=== PATIENT | female | born 1995 | race African-American/Black ===

== ENCOUNTER 2017-03-01 19:23 | Emergency (ER) | payer MEDICAID, OTHER ==
[2017-03-01] MEDS ORDERED: ACETAMINOPHEN 500 MG TAB PO ONE ×2 (19:36→19:45)
[2017-03-01 20:12] LABS: Basophils # (auto) 0 uL; Basophils % (auto) 0.2 % (0.0-2.0); Eosinophils # (auto) 0 uL; Hematocrit 38.2 % (36.0-46.0); Hemoglobin 13.2 g/dL (12.2-16.2); Lymphocytes # (auto) 0.6 uL; Mean Corpuscular Hgb Conc. 34.5 g/dL (32.0-36.0); Mean Corpuscular Volume 89.7 fL (80.0-100.0); Mean Platelet Volume 7.3 fL (6.9-10.8); Monocytes # (auto) 0.7 uL; Monocytes % (auto) 6.8 % (0.0-12.0); Neutrophils # (auto) 8.7 uL; Platelet Count (auto) 325 10^3/uL (140-450); Red Cell Distribution Width 13.2 % (11.8-14.3)
[2017-03-01 20:18] LABS: Albumin 3.4 g/dL (3.4-5.0); BUN/Creatinine Ratio 3.4; Calcium 8.3 mg/dL (8.5-10.1)
[2017-03-01 20:21] LABS: Bilirubin, Total 0.6 mg/dL (0.2-1.0); Total Protein 8.3 g/dL (6.4-8.2)
[2017-03-01] MEDS ORDERED: cefTRIAXone SOD 1,000 MG VL IM ONE (23:15)
[2017-03-01] MEDS ORDERED: HYDROcodone-ACET 5/325MG TAB PO ONE (23:15)
[2017-03-01 23:54] LABS: Urine Bilirubin Negative (Negative); Urine Blood Negative /uL (Negative); Urine Color Yellow (Yellow); Urine Glucose Normal (Normal); Urine Ketone 2+ (Negative); Urine Mucus FEW (None Seen); Urine Nitrite Negative (Negative); Urine RBC 2 /hpf (0 - 4); Urine Squamous Epithelial Cell FEW /hpf (<5); Urine pH 6.5 (5.0-8.0)
[2017-03-02 00:55] VITALS: BP 111/62
== END 2017-03-02 00:57 | disposition home or self-care (01) ==
LOC: ER 19:27
DX: J03.90 Acute tonsillitis, unspecified (principal)
CPT/HCPCS: 36415; 80053; 81001; 85025; 87070; 87880; 96372; 99284; J0696